=== PATIENT | male | born 1935 | race Caucasian/White ===

== ENCOUNTER 2018-06-29 17:21 | Inpatient (IN) ==
[2018-06-29 19:43] LABS: Basophils % 0.1 % (0.1-2.0); Eosinophils % 0.1 % (0.1-12.0); Hematocrit 30.5 % (42.0-52.0); Hemoglobin 9.9 g/dL (14.1-18.0); Lymphocytes # 0.4 K/mm3 (0.7-4.5); Lymphocytes % 1.9 % (10-50); Mean Corpuscular HGB Conc 32.5 g/dL (31.8-35.4); Mean Corpuscular Hemoglobin 33.3 pg (27.0-31.2); Mean Corpuscular Volume 102.5 fl (80-94); Mean Platelet Volume 8.7 fl (7.4-10.4); Monocytes # 1.2 K/mm3 (0.1-1.0); Neutrophils # 21.3 K/mm3 (1.8-7.8); Neutrophils % 92.9 % (37.0-80.0); Platelet Count 203 K/mm3 (142-424); Red Blood Count 2.97 M/mm3 (4.60-6.20); Red Cell Distribution Width 13.8 % (11.5-17.5); White Blood Count 22.9 K/mm3 (4.8-10.8)
--- NOTE | 2018-06-29 19:54 | Emergency Department Note ---
ED Disposition Clinical Impression: Right lower lobe pneumonia, Fall, Brain atrophy, DJD (degenerative joint disease) of cervical spine, Sinusitis, Hypokalemia Disposition: Still a Patient Condition on Discharge: Fair - Critical Care Critical Care Time: No Attestation: On 06/29/18, the high probability of a clinically significant, sudden or life threatening deterioration of the following system(s) required my full and direct attention, intervention and personal management. The time I documented below is in addition to time spent performing reported procedures but includes the following listed in this critical care notation. Medical Decision Making - Medical Records Medical records reviewed: Yes: I reviewed the patient's medical records. - Efra Inquiry Pt receiving controlled substance: No Efra was queried for this patient: No Vital Signs: 06/29/18 17:21 06/29/18 17:42 06/29/18 18:20 Temperature 98.4 F Temperature Source Temporal Artery Scan Pulse Rate [Right Brachial] 67 69 59 L Respiratory Rate 18 Blood Pressure [Right Arm] 89/53 L 90/51 L 91/51 L Blood Pressure Mean [Right Arm] 65 64 64 Blood Pressure Source [Right Arm] Automatic Cuff Automatic Cuff Automatic Cuff Blood Pressure Position [Right Arm] Supine Sitting Sitting 02 Sat by Pulse Oximetry 95 95 Oxygen Delivery Method Nasal Cannula Oxygen Flow Rate (LPM) 2 06/29/18 18:30 06/29/18 19:00 06/29/18 19:52 Temperature Temperature Source Pulse Rate [Right Brachial] 53 L 56 L 58 L Respiratory Rate Blood Pressure [Right Arm] 101/53 L 98/54 L 105/53 L Blood Pressure Mean [Right Arm] 69 68 70 Blood Pressure Source [Right Arm] Automatic Cuff Automatic Cuff Blood Pressure Position [Right Arm] Sitting Sitting 02 Sat by Pulse Oximetry 97 97 97 Oxygen Delivery Method Oxygen Flow Rate (LPM) - Lab Data Lab Results 06/29/18 18:33: Lactate 1.5 06/29/18 19:30: WBC 22.9 H*, RBC 2.97 L, Hgb 9.9 L, Hct 30.5 L, MCV 102.5 H, MCH 33.3 H, MCHC 32.5, RDW 13.8, Plt Count 203, MPV 8.7, Neut % (Auto) 92.9 H, Lymph % (Auto) 1.9 L, [place] % (Auto) 5.0, Eos % (Auto) 0.1, Baso % (Auto) 0.1, Neut # (Auto) 21.3 H, Lymph # (Auto) 0.4 L, [place] # (Auto) 1.2 H, Eos # (Auto) 0.0, Baso # (Auto) 0.0 06/29/18 19:30: Sodium 140, Potassium 2.9 L*, Chloride 103, Carbon Dioxide 29, Anion Gap 10.9, BUN 27 H, Creatinine 1.53 H, Estimated Creat Clear 43, Estimated GFR 44 L, Est GFR ( Amer) 53 L, Glucose 128 H, Calcium 7.8 L, Total Bilirubin 0.4, AST 37, ALT 28, Alkaline Phosphatase 115, Total Creatine Kinase 700 H*, CK-MB (CK-2) 4.6 H, CK-MB (CK-2) Rel Index 0.7, Troponin I 0.05, Total Protein 7.2, Albumin 2.6 L, Globulin 4.6 H, Albumin/Globulin Ratio 0.6 L Result diagrams: 06/29/18 19:30 06/29/18 19:30 Orders (Tests/Meds): ED MEDICATIONS Discontinued Medications Generic Name Dose Route Start Last Admin Trade Name Freq PRN Reason Stop Dose Admin Sodium Chloride 1,000 mls @ 999 mls/hr 06/29/18 17:45 06/29/18 17:30 Sod Chlor 0.9% 1000ml Bag IV 06/29/18 18:45 999 mls/hr .Q1H1M JODEE Administration Ceftriaxone Sodium 1 gm/ 50 mls @ 100 mls/hr 06/29/18 18:39 06/29/18 19:54 Sodium Chloride IV 06/29/18 19:08 100 mls/hr ONCE ONE Administration Protocol ORDERS Category Date Time Status Complete Blood Count Auto Diff Stat Lab 06/29/18 19:30 Results UDS [Drug Screen,Urine] Routine Lab 06/29/18 Ordered Blood Culture Stat Micro 06/29/18 19:30 Received - Radiology Data #1 Image(s): Chest Preliminary Findings: Abnormal MPRESSION: Probable right perihilar and right lower lobe pneumonia, question minimal left lower lobe pneumonic infiltrate as well MPRESSION: Pelvis and hips negative for acute fracture - CT Data CT Scan: C-Spine Time Received: 20:01 Findings Narrative: MPRESSION: Mild to moderate degenerative disc disease C5-6 and C6-7 and arthritic changes of the lateral axial joint, no acute cervical spine pathology noted. IMPRESSION: Inflammatory changes likely acute and chronic of the maxillary sinuses, no facial bone fracture noted. MPRESSION: Findings of age-appropriate cortical atrophy and chronic ischemic white matter changes, no acute intracranial pathology noted Medical Decision Narrative: The patient received IV fluids with increase of systolic blood pressure to 105/[address] scans were essentially negative except for sinusitis and degenerative joint disease of the cervical spine and unchanged MCA aneurysm. X-ray was surprisingly positive for right lower lobe pneumonia his blood work came back positive for 22K WBC his potassium was 2.9. I informed the patient his caregiver that he will need to be admitted, he refused to be transferred to the [place] and signed a refusal and agreed to be admitted to [facility] on the unassigned service. Fall HPI - General Chief Complaint: Fall Stated Complaint: fall Time Seen by Provider: 06/29/18 18:00 Mode of Arrival: EMS Limitations: No Limitations Description of Symptoms (Recalled from ER Triage Doc. by RN): Pt caregiver states she came home from the store and found pt on the floor, states when she left pt was in his recliner. Pt caregiver states when she found pt on the floor he acted like he had been asleep. Pt is alert, oriented x3, pt is stuttering when he talks, caregiver states speech is not normal for pt, caregiver states the last time pt fell his speech was the same. - History of Present Illness HPI Narrative: I read the above triage and agree with it. The patient is 82 years old white male who ambulates independently at his house with a caregiver. As above she went to the store came back found on the floor with facial rash and chest rash. He denies neck pain mid back pain or lower back pain. Denies having chest pain or abdominal pain. MD complaint: fall Onset (ago): minute(s) (30 minutes prior to arrival.) Fall from: wheelchair Fall witnessed: no Place fall occurred: home Loss of consciousness: unsure Prolonged down time: unclear Location of injury: face, chest - Related Data Home Medications Medication Instructions Recorded Confirmed Aspirin [Aspir 81] 81 mg PO DAILY 04/08/18 06/29/18 Atenolol [Atenolol 25mg Tab] 25 mg PO DAILY 04/08/18 06/29/18 Baclofen 5 mg PO DAILY 04/08/18 06/29/18 Ergocalciferol (Vitamin D2) 400 unit PO DAILY 04/08/18 06/29/18 [Vitamin D] Multivitamin [Multi-Day Vitamins] 1 each PO DAILY 04/08/18 06/29/18 Doxepin HCl [Sinequan 10mg capsule] 10 mg PO BID 06/29/18 06/29/18 hydroCHLOROthiazide [HCTZ 25mg 25 mg PO DAILY 06/29/18 06/29/18 tab] Allergies Allergy/AdvReac Type Severity Reaction Status Date / Time tuberculin,PPD,multi-puncture Allergy Mild Verified 06/29/18 17:31 [TUBERCULIN,PPD,MULTI-PUNCTURE] [facility] History I have reviewed the patient's past medical history: Yes Medical History: Denies:: Diabetes Mellitus Type 1, Diabetes Mellitus Type 2 Laterality Cases: Bilateral: Other - Social History Smoking Status: Current every day smoker Tobacco Type: cigarettes Alcohol Intake: never - Psychiatric History Expresses thoughts of harming self/others: None Suicide Plan Description: No Plan ROS Obtained: Yes All systems reviewed & no additional complaints Physical Exam - General General appearance: alert, in no apparent distress - Head Head exam: normocephalic, normal inspection, other (Left facial and nose carpet rash. ) - Eye Eye exam: Present: normal appearance, PERRL, EOMI - ENT ENT exam: Present: normal exam, normal oropharynx, mucous membranes moist, TM's normal bilaterally, normal external ear exam - Neck Neck exam: Present: normal inspection, full ROM, trachea midline. Absent: meningismus, lymphadenopathy - Chest Chest inspection: Present: normal inspection, symmetric chest wall rise, rash, other (Carpet rash on the right side of the chest. ). Absent: tenderness - Respiratory Respiratory exam: Present: normal lung sounds bilaterally. Absent: respiratory distress, wheezes, stridor - Cardiovascular Cardiovascular exam: Present: regular rate, normal rhythm, normal heart sounds. Absent: JVD - Abdominal Exam Abdominal exam: Present: soft, normal bowel sounds. Absent: distention, tenderness, guarding, rebound, rigidity - Extremities Exam Extremities exam: Present: normal inspection, full ROM, normal capillary refill. Absent: tenderness, pedal edema, joint swelling, calf tenderness - Back Exam Back exam: Present: normal inspection. Absent: tenderness, CVA tenderness (R), CVA tenderness (L), paraspinal tenderness, vertebral tenderness - Neurological Exam Neurological exam: Present: alert, oriented X3, CN II-XII intact, motor sensory deficit, reflexes normal - Psychiatric Psychiatric exam: Present: normal affect, normal mood - Skin Skin exam: Present: warm, dry, intact, normal color - Lymphatic Lymphatic Findings: no adenopathy
[2018-06-29 20:08] LABS: Albumin Level 2.6 gm/dL (3.4-5.0); Albumin/Globulin Ratio 0.6 (1.1-1.8); Anion Gap 10.9 mEq/L (5-15); Bilirubin,Total 0.4 mg/dL (0.2-1.0); Calcium 7.8 mg/dL (8.5-10.1); Globulin 4.6 gm/dl (1.3-3.2); Total Protein,Serum 7.2 gm/dL (6.4-8.2)
[2018-06-29 20:12] LABS: Potassium 2.9 mmoL/L (3.5-5.1)
[2018-06-29 20:40] LABS: Lymphocytes % 3 % (10-50); Macrocytosis 2+; Monocytes % 3 % (2-9); Neutrophils % 78 % (42-76); Rouleaux 2+; Total Cells Counted 100
[2018-06-30 06:06] LABS: Basophils % 0.2 % (0.1-2.0); Eosinophils % 0.2 % (0.1-12.0); Hematocrit 29.4 % (42.0-52.0); Hemoglobin 9.3 g/dL (14.1-18.0); Lymphocytes # 1.3 K/mm3 (0.7-4.5); Lymphocytes % 9.9 % (10-50); Mean Corpuscular HGB Conc 31.8 g/dL (31.8-35.4); Mean Corpuscular Hemoglobin 32.6 pg (27.0-31.2); Mean Corpuscular Volume 102.6 fl (80-94); Mean Platelet Volume 8.1 fl (7.4-10.4); Monocytes # 0.8 K/mm3 (0.1-1.0); Monocytes % 6.2 % (1.7-9.3); Neutrophils # 11.2 K/mm3 (1.8-7.8); Neutrophils % 83.6 % (37.0-80.0); Platelet Count 191 K/mm3 (142-424); Red Blood Count 2.86 M/mm3 (4.60-6.20); Red Cell Distribution Width 13.8 % (11.5-17.5); White Blood Count 13.4 K/mm3 (4.8-10.8)
--- NOTE | 2018-06-30 07:28 | Pharmacy Consult Notes ---
[facility] Pharmacy VTE Monitoring - Patient Demographics Admission date: 06/29/18 Report Date: 06/30/18 Time: 07:28 Allergies/Adverse Reactions: Patient Allergies tuberculin,PPD,multi-puncture [TUBERCULIN,PPD,MULTI-PUNCTURE] Allergy (Mild, Verified 06/29/18 17:31) Height: 1.83 m Weight: 81.76 kg Patient Problems: Current Active Problems Hypokalemia (Acute) Right lower lobe pneumonia (Acute) Fall (Acute) Brain atrophy (Acute) DJD (degenerative joint disease) of cervical spine (Acute) Sinusitis (Acute) - VTE Risk Labs: VTE Related Lab Results Hgb 9.3 g/dL (14.1-18.0) L 06/30/18 05:34 Hct 29.4 % (42.0-52.0) L 06/30/18 05:34 Plt Count 191 K/mm3 (142-424) 06/30/18 05:34 BUN 28 mg/dL (7-18) H 06/30/18 05:34 Creatinine 1.41 mg/dL (0.70-1.30) H 06/30/18 05:34 Estimated Creat Clear 47 mL/min (50-200) 06/30/18 05:34 Was VTE Risk Assessment Performed: Yes VTE Risk Level: Moderate Risk - Prophylaxis VTE Prophylaxis Ordered?: Yes Types of VTE Prophylaxis: TEDS Knee High Location of Applied Device: Bilateral Lower Extremeties - VTE Diagnosis Confirmed Treatment or plan recommended: Continue Current Treatment
--- NOTE | 2018-06-30 08:49 | History & Physical Report ---
*Admission Date: 06/29/18 *Chief complaint: Fall; cough *History of present illness: Patient is an 82-year-old male who receives the majority of his care at [facility] and is also followed by Dr. Easley who was admitted through emergency room due to a fall and persistent cough. He does have a history of hypertension, chronic back pain, tobacco addiction, peptic ulcer disease, Parkinson's disease, cerebral aneurysm, and frequent falls. Patient describes a cough for the past 3-4 days associated with a fever and some shortness of breath. He states that he got up from his chair yesterday p.m., lost his balance and fell to the floor. He states this happens frequently. He denies any injuries from the fall. He does deny chest pain as well and feels that he has been eating as usual. With evaluation in the emergency room he was found to have a pneumonia. He was given an IV fluid bolus, started on Rocephin, and then admitted for further evaluation and treatment. This a.m. patient does not feel any better. He continues to cough. [facility] History Medical History: Reports:: Heart Murmur, Hyperlipidemia, Hypertension, Renal Insufficiency Denies:: Cancer, Diabetes Mellitus Type 1, Diabetes Mellitus Type 2, Internal Pacemaker, MRSA Comment: Parkinson's disease Laterality Cases: Bilateral: Other (Lumbar disc surgery; removal of cyst from scrotum) Other Surgeries: No: Pacemaker Amputation: No - *Social History Educational Level: Attended High School Smoking Status: Current every day smoker Tobacco Type: cigarettes # Packs/Day (cigarettes): 1 Alcohol Intake: current Alcohol Intake Frequency:: holidays/special occasions only Occupational Status: retired Housing: house Household Members: friend(s) - Psychiatric History Expresses thoughts of harming self/others: None Suicide Plan Description: No Plan Comment: Mother with cancer; siblings had leukemia Review of Systems - Constitutional Reports chills, Reports fever(s), Reports headache(s) - ENT Reports dizziness, Denies ear pain, Denies sore throat - *Cardiovascular Reports shortness of breath, Denies chest pain - *Respiratory Reports chest congestion, Reports cough, Reports shortness of breath - *Gastrointestinal Reports constipation (Sometimes), Denies change in bowel habits, Denies difficulty swallowing, Denies black, tarry stools, Denies nausea, Denies vomiting - *Genitourinary Denies difficulty urinating - *Musculoskeletal Reports back pain, Reports muscle weakness - *Neurologic Reports unsteadiness, Reports dizziness, Reports frequent falls, Reports headache(s), Reports weakness, Denies seizure-like activity, Denies fainting Meds Home Medications Medication Instructions Recorded Confirmed Type Aspirin [Aspir 81] 81 mg PO DAILY 04/08/18 06/29/18 History Atenolol [Atenolol 25mg Tab] 25 mg PO DAILY 04/08/18 06/29/18 History Baclofen 5 mg PO DAILY 04/08/18 06/29/18 History Multivitamin [Multi-Day Vitamins] 1 each PO DAILY 04/08/18 06/29/18 History Doxepin HCl [Sinequan 10mg capsule] 10 mg PO BID 06/29/18 06/29/18 History hydroCHLOROthiazide [HCTZ 25mg 25 mg PO DAILY 06/29/18 06/29/18 History tab] Albuterol Sulfate [Albuterol HFA 1 - 2 puffs IH Q4-6H PRN 06/30/18 06/30/18 History Inhaler] Cholecalciferol (Vitamin D3) 400 unit PO DAILY 06/30/18 06/30/18 History [Vitamin D3] Sennosides/Docusate Sodium [Stool 1 each PO DAILYP PRN 06/30/18 06/30/18 History Softener-Laxative Tablet] Allergies Allergy/AdvReac Type Severity Reaction Status Date / Time tuberculin,PPD,multi-puncture Allergy Mild Verified 06/29/18 17:31 [TUBERCULIN,PPD,MULTI-PUNCTURE] Exam Vital signs and Labs for Last 24 Hours: Temp Pulse Resp BP Pulse Ox 98.5 F 59 L 18 126/58 L 94 L 06/30/18 07:50 06/30/18 07:50 06/30/18 07:50 06/30/18 07:50 06/30/18 07:50 Laboratory Results - last 24 hr 06/29/18 18:33: Lactate 1.5 06/29/18 19:30: WBC 22.9 H*, RBC 2.97 L, Hgb 9.9 L, Hct 30.5 L, MCV 102.5 H, MCH 33.3 H, MCHC 32.5, RDW 13.8, Plt Count 203, MPV 8.7, Neut % (Auto) 92.9 H, Lymph % (Auto) 1.9 L, [place] % (Auto) 5.0, Eos % (Auto) 0.1, Baso % (Auto) 0.1, Neut # (Auto) 21.3 H, Lymph # (Auto) 0.4 L, [place] # (Auto) 1.2 H, Eos # (Auto) 0.0, Baso # (Auto) 0.0, Total Counted 100, Neutrophils % (Manual) 78 H, Band Neutrophils % 16.0 H, Lymphocytes % (Manual) 3 L, Monocytes % (Manual) 3, Platelet Estimate Normal, RBC Morphology Not Reportable, Macrocytosis 2+, Rouleaux 2+ 06/29/18 19:30: Sodium 140, Potassium 2.9 L*, Chloride 103, Carbon Dioxide 29, Anion Gap 10.9, BUN 27 H, Creatinine 1.53 H, Estimated Creat Clear 43, Estimated GFR 44 L, Est GFR ( Amer) 53 L, Glucose 128 H, Calcium 7.8 L, Total Bilirubin 0.4, AST 37, ALT 28, Alkaline Phosphatase 115, Total Creatine Kinase 700 H*, CK-MB (CK-2) 4.6 H, CK-MB (CK-2) Rel Index 0.7, Troponin I 0.05, Total Protein 7.2, Albumin 2.6 L, Globulin 4.6 H, Albumin/Globulin Ratio 0.6 L 06/30/18 05:34: WBC 13.4 H D, RBC 2.86 L, Hgb 9.3 L, Hct 29.4 L, MCV 102.6 H, MCH 32.6 H, MCHC 31.8, RDW 13.8, Plt Count 191, MPV 8.1, Neut % (Auto) 83.6 H, Lymph % (Auto) 9.9 L, [place] % (Auto) 6.2, Eos % (Auto) 0.2, Baso % (Auto) 0.2, Neut # (Auto) 11.2 H, Lymph # (Auto) 1.3, [place] # (Auto) 0.8, Eos # (Auto) 0.0, Baso # (Auto) 0.0 06/30/18 05:34: Sodium 140, Potassium 3.0 L, Chloride 105, Carbon Dioxide 28, Anion Gap 10.0, BUN 28 H, Creatinine 1.41 H, Estimated Creat Clear 47, Estimated GFR 48 L, Est GFR ( Amer) 58 L, Glucose 107 H, Calcium 8.0 L I & O for Last 24 hours: Intake & Output 06/27/18 06/28/18 06/29/18 06/30/18 11:59 11:59 11:59 11:59 Intake Total 1998 Output Total 550 / 550 Balance 1449 / 1449 Weight 180 lb 4 oz Radiology Reports for the Last 24 Hours: 06/29/2018 chest x-ray IMPRESSION: Probable right perihilar and right lower lobe pneumonia, question minimal left lower lobe pneumonic infiltrate as well 06/29/2018 x-ray of pelvis IMPRESSION: Pelvis and hips negative for acute fracture 06/29/2018 CT of the head IMPRESSION: Findings of age-appropriate cortical atrophy and chronic ischemic white matter changes, no acute intracranial pathology noted 06/29/2018 CT of the face IMPRESSION: Inflammatory changes likely acute and chronic of the maxillary sinuses, no facial bone fracture noted. 06/29/2018 CT of the cervical spine IMPRESSION: Mild to moderate degenerative disc disease C5-6 and C6-7 and arthritic changes of the lateral axial joint, no acute cervical spine pathology noted. - Constitutional no acute distress Comments: Conversant - *Routine HEENT Exam Head: Present: normocephalic, atraumatic Eye: Present: PERRL ENT: Present: mucous membranes dry, oropharynx clear, nares patent - *Routine Neck Exam Present: supple, full ROM. Absent: carotid bruit, lymphadenopathy, thyromegaly - *Routine Respiratory Exam Comments: Bilateral rhonchi and wheezing throughout - *Routine Cardiovascular Exam Present: RRR - *Routine Abdominal Exam Present: soft, normoactive bowel sounds. Absent: tenderness, distended - *Routine Extremities Exam Present: full ROM. Absent: edema, calf tenderness - *Routine Neurological Exam Present: alert, oriented X3 Cogwheeling noted; mask face Assessment and Plan (1) Hypokalemia Current visit: Yes Status: Acute Category: Medical Code(s): E87.6 - Hypokalemia (2) Right lower lobe pneumonia Current visit: Yes Status: Acute Category: Medical Code(s): J18.1 - Lobar pneumonia, unspecified organism (3) Parkinsons disease Current visit: Yes Status: Chronic Category: Medical Code(s): G20 - Parkinson's disease (4) Hypertension Current visit: Yes Status: Chronic Category: Medical Code(s): I10 - Essential (primary) hypertension (5) Tobacco use disorder Current visit: Yes Status: Chronic Category: Medical Code(s): F17.200 - Nicotine dependence, unspecified, uncomplicated (6) Fall Current visit: Yes Status: Chronic Category: Medical Code(s): W19.XXXA - Unspecified fall, initial encounter (7) Sinusitis Current visit: Yes Status: Acute Category: Medical Code(s): J32.9 - Chronic sinusitis, unspecified (8) Renal insufficiency Current visit: Yes Status: Acute Category: Medical Code(s): N28.9 - Disorder of kidney and ureter, unspecified - Assessment and plan all Dx Assessment and Plan for all problems:: Patient has been started on IV Rocephin and Zithromax. Continues with IV fluids with 40 mEq of potassium at 75 an hour. He is also been started on p.o. potassium. He will have swallowing studies this a.m. He has also been started on DuoNeb treatments. CBC and BMP ordered for in the a.m.
[2018-07-01 06:09] LABS: Anion Gap 13.7 mEq/L (5-15); Calcium 8.3 mg/dL (8.5-10.1); Potassium 3.7 mmoL/L (3.5-5.1)
[2018-07-01 06:14] LABS: Basophils % 0.3 % (0.1-2.0); Eosinophils % 0.3 % (0.1-12.0); Hematocrit 30.5 % (42.0-52.0); Hemoglobin 9.6 g/dL (14.1-18.0); Lymphocytes # 0.7 K/mm3 (0.7-4.5); Lymphocytes % 8.7 % (10-50); Mean Corpuscular HGB Conc 31.4 g/dL (31.8-35.4); Mean Corpuscular Hemoglobin 32.2 pg (27.0-31.2); Mean Corpuscular Volume 102.4 fl (80-94); Mean Platelet Volume 7.9 fl (7.4-10.4); Monocytes # 0.6 K/mm3 (0.1-1.0); Monocytes % 7.7 % (1.7-9.3); Neutrophils # 6.9 K/mm3 (1.8-7.8); Platelet Count 186 K/mm3 (142-424); Red Blood Count 2.98 M/mm3 (4.60-6.20); Red Cell Distribution Width 13.9 % (11.5-17.5); White Blood Count 8.3 K/mm3 (4.8-10.8)
--- NOTE | 2018-07-01 08:53 | Progress Note ---
Internal Medicine - PN: Subj *Date: 07/01/18 *Time: 08:50 Interval history: Mr. Matthews seems confused and disoriented this morning. He is trying to get out of bed. His numbers look better. His white count is normal. He has however been running a fever. He has lots of rales and rhonchi on the right side. Exam Vital signs and Labs for Last 24 Hours: Temp Pulse Resp BP Pulse Ox 100.6 F H 78 22 130/73 95 07/01/18 04:00 07/01/18 06:20 07/01/18 04:00 07/01/18 04:00 07/01/18 06:20 Laboratory Results - last 24 hr 07/01/18 05:40: WBC 8.3 D, RBC 2.98 L, Hgb 9.6 L, Hct 30.5 L, MCV 102.4 H, MCH 32.2 H, MCHC 31.4 L, RDW 13.9, Plt Count 186, MPV 7.9, Neut % (Auto) 83.0 H, Lymph % (Auto) 8.7 L, [place] % (Auto) 7.7, Eos % (Auto) 0.3, Baso % (Auto) 0.3, Neut # (Auto) 6.9, Lymph # (Auto) 0.7, [place] # (Auto) 0.6, Eos # (Auto) 0.0, Baso # (Auto) 0.0 07/01/18 05:40: Sodium 143, Potassium 3.7 D, Chloride 107, Carbon Dioxide 26, Anion Gap 13.7, BUN 26 H, Creatinine 1.56 H, Estimated Creat Clear 42, Estimated GFR 43 L, Est GFR ( Amer) 52 L, Glucose 87, Calcium 8.3 L Laboratory Tests 07/01/18 07/01/18 05:40 05:40 WBC 8.3 D Hgb 9.6 L Sodium 143 Potassium 3.7 D Chloride 107 BUN 26 H Creatinine 1.56 H I & O for Last 24 hours: Intake & Output 06/28/18 06/29/18 06/30/18 07/01/18 11:59 11:59 11:59 11:59 Intake Total 1998 1217 / 1217 Output Total 550 / 550 900 / 900 Balance 1449 / 1449 317 / 317 Weight 180 lb 4 oz 177 lb 4 oz - Constitutional no acute distress, agitated - *Routine HEENT Exam Eye: Present: PERRL ENT: Present: mucous membranes moist - *Routine Respiratory Exam Comments: Right-sided rales and rhonchi. Seems worse than yesterday. - *Routine Abdominal Exam Present: soft. Absent: tenderness - *Routine Extremities Exam Absent: edema Assessment and Plan (1) Hypokalemia Current visit: Yes Status: Acute Category: Medical Code(s): E87.6 - Hypokalemia (2) Right lower lobe pneumonia Current visit: Yes Status: Acute Category: Medical Code(s): J18.1 - Lobar pneumonia, unspecified organism (3) Parkinsons disease Current visit: Yes Status: Chronic Category: Medical Code(s): G20 - Parkinson's disease (4) Hypertension Current visit: Yes Status: Chronic Category: Medical Code(s): I10 - Essential (primary) hypertension (5) Tobacco use disorder Current visit: Yes Status: Chronic Category: Medical Code(s): F17.200 - Nicotine dependence, unspecified, uncomplicated (6) Fall Current visit: Yes Status: Chronic Category: Medical Code(s): W19.XXXA - Unspecified fall, initial encounter (7) Sinusitis Current visit: Yes Status: Acute Category: Medical Code(s): J32.9 - Chronic sinusitis, unspecified (8) Renal insufficiency Current visit: Yes Status: Acute Category: Medical Code(s): N28.9 - Disorder of kidney and ureter, unspecified - Assessment and plan all Dx Assessment and Plan for all problems:: Repeat chest x-ray. Chest physiotherapy. He refused Sinemet yesterday. I am going to try Mirapex today.
--- NOTE | 2018-07-02 08:17 | Progress Note ---
Internal Medicine - PN: Subj *Date: 07/02/18 *Time: 08:14 Interval history: Patient is awake this morning but very difficult to understand. He does state that he hurts in his back and he needs to urinate. He denies any other pain. He states he slept off and on last night. Exam Vital signs and Labs for Last 24 Hours: Temp Pulse Resp BP Pulse Ox 98.3 F 66 20 159/88 H 98 07/02/18 07:24 07/02/18 07:24 07/02/18 07:24 07/02/18 07:24 07/02/18 07:24 I & O for Last 24 hours: Intake & Output 06/29/18 06/30/18 07/01/18 07/02/18 11:59 11:59 11:59 11:59 Intake Total 1998 / 1998 1457 / 1457 360 / 360 Output Total 550 / 550 900 / 900 250 / 250 Balance 1449 / 1449 557 / 557 110 / 110 Weight 180 lb 4 oz 177 lb 4 oz 177 lb 3.991 oz Microbiology Reports for the Last 24 Hours: Microbiology 06/29/18 19:30 Blood Blood Culture - Preliminary NO GROWTH AFTER 48 HOURS 06/29/18 18:33 Blood Blood Culture - Preliminary NO GROWTH AFTER 48 HOURS Radiology Reports for the Last 24 Hours: CXR - No change right lower lobe pneumonia with small effusion. Head CT - 1. No acute intracranial findings. 2. Atrophy with chronic ischemic change. 3. Sinusitis - Constitutional no acute distress - *Routine Respiratory Exam Present: rhonchi, wheezes (bilaterally). Absent: rales - *Routine Cardiovascular Exam Present: RRR - *Routine Abdominal Exam Present: soft, normoactive bowel sounds. Absent: tenderness - *Routine Extremities Exam Absent: cyanosis, clubbing, edema Assessment and Plan (1) Right lower lobe pneumonia Current visit: Yes Status: Acute Category: Medical Code(s): J18.1 - Lobar pneumonia, unspecified organism (2) Hypokalemia Current visit: Yes Status: Acute Category: Medical Code(s): E87.6 - Hypokalemia (3) Parkinsons disease Current visit: Yes Status: Chronic Category: Medical Code(s): G20 - Parkinson's disease (4) Hypertension Current visit: Yes Status: Chronic Category: Medical Code(s): I10 - Essential (primary) hypertension (5) Tobacco use disorder Current visit: Yes Status: Chronic Category: Medical Code(s): F17.200 - Nicotine dependence, unspecified, uncomplicated (6) Fall Current visit: Yes Status: Chronic Category: Medical Code(s): W19.XXXA - Unspecified fall, initial encounter (7) Sinusitis Current visit: Yes Status: Acute Category: Medical Code(s): J32.9 - Chronic sinusitis, unspecified (8) Renal insufficiency Current visit: Yes Status: Acute Category: Medical Code(s): N28.9 - Disorder of kidney and ureter, unspecified - Assessment and plan all Dx Assessment and Plan for all problems:: Will discuss further care with Dr. Easley.
--- NOTE | 2018-07-03 08:54 | Progress Note ---
Internal Medicine - PN: Subj *Date: 07/03/18 *Time: 08:51 Interval history: He looks significantly improved today. He is sitting up in the chair and he is conversant and more intelligible in his speech. He fed himself breakfast. Exam Vital signs and Labs for Last 24 Hours: Temp Pulse Resp BP Pulse Ox 97.8 F 66 20 150/89 H 94 L 07/03/18 07:56 07/03/18 07:56 07/03/18 07:56 07/03/18 07:56 07/03/18 07:56 I & O for Last 24 hours: Intake & Output 06/30/18 07/01/18 07/02/18 07/03/18 11:59 11:59 11:59 11:59 Intake Total 1998 / 1998 1457 / 1457 360 / 360 2307 / 2307 Output Total 550 / 550 900 / 900 450 / 450 200 / 200 Balance 1449 / 1449 557 / 557 -90 / -90 2107 / 2107 Weight 180 lb 4 oz 177 lb 4 oz 177 lb 3.991 oz 176 lb 10.961 oz - Constitutional no acute distress - *Routine HEENT Exam Head: Present: normocephalic Eye: Present: EOMI, PERRL ENT: Present: mucous membranes moist - *Routine Neck Exam Present: supple. Absent: lymphadenopathy - *Routine Respiratory Exam Comments: He is moving air better bilaterally and his rales and rhonchi have decreased bilaterally. - *Routine Abdominal Exam Present: soft, normoactive bowel sounds. Absent: tenderness - *Routine Extremities Exam Absent: cyanosis, clubbing, edema Assessment and Plan (1) Right lower lobe pneumonia Current visit: Yes Status: Acute Category: Medical Code(s): J18.1 - Lobar pneumonia, unspecified organism (2) Hypokalemia Current visit: Yes Status: Acute Category: Medical Code(s): E87.6 - Hy pokalemia (3) Parkinsons disease Current visit: Yes Status: Chronic Category: Medical Code(s): G20 - Parkinson's disease (4) Hypertension Current visit: Yes Status: Chronic Category: Medical Code(s): I10 - Essential (primary) hypertension (5) Tobacco use disorder Current visit: Yes Status: Chronic Category: Medical Code(s): F17.200 - Nicotine dependence, unspecified, uncomplicated (6) Fall Current visit: Yes Status: Chronic Category: Medical Code(s): W19.XXXA - Unspecified fall, initial encounter (7) Sinusitis Current visit: Yes Status: Acute Category: Medical Code(s): J32.9 - C hronic sinusitis, unspecified (8) Renal insufficiency Current visit: Yes Status: Acute Category: Medical Code(s): N28.9 - Disorder of kidney and ureter, unspecified - Assessment and plan all Dx Assessment and Plan for all problems:: He is much improved. Continue present regimen.
[2018-07-03 10:31] LABS: Basophils % 0.4 % (0.1-2.0); Eosinophils # 0.1 K/mm3 (0.0-0.4); Eosinophils % 2.2 % (0.1-12.0); Hematocrit 31.6 % (42.0-52.0); Hemoglobin 9.8 g/dL (14.1-18.0); Lymphocytes # 0.8 K/mm3 (0.7-4.5); Lymphocytes % 14.2 % (10-50); Mean Corpuscular Hemoglobin 32.6 pg (27.0-31.2); Mean Corpuscular Volume 105.1 fl (80-94); Mean Platelet Volume 9.3 fl (7.4-10.4); Monocytes # 0.6 K/mm3 (0.1-1.0); Monocytes % 9.6 % (1.7-9.3); Neutrophils # 4.3 K/mm3 (1.8-7.8); Neutrophils % 73.6 % (37.0-80.0); Platelet Count 186 K/mm3 (142-424); Red Cell Distribution Width 13.9 % (11.5-17.5); White Blood Count 5.9 K/mm3 (4.8-10.8)
[2018-07-03 10:38] LABS: Anion Gap 10.5 mEq/L (5-15); Calcium 8.2 mg/dL (8.5-10.1); Potassium 4.5 mmoL/L (3.5-5.1)
--- NOTE | 2018-07-04 09:19 | Progress Note ---
Internal Medicine - PN: Subj *Date: 07/04/18 *Time: 08:40 Interval history: Pt is resting quietly in bed. He is answering questions and following commands appropriately. He reports "hurting all over" and decreased appetite this morning. Exam Vital signs and Labs for Last 24 Hours: Temp Pulse Resp BP Pulse Ox 97.6 F 58 L 18 152/80 H 94 L 07/04/18 04:00 07/04/18 05:42 07/04/18 04:00 07/04/18 04:00 07/04/18 05:42 Laboratory Results - last 24 hr 07/03/18 10:15: WBC 5.9 D, RBC 3.00 L, Hgb 9.8 L, Hct 31.6 L, MCV 105.1 H, MCH 32.6 H, MCHC 31.0 L, RDW 13.9, Plt Count 186, MPV 9.3, Neut % (Auto) 73.6, Lymph % (Auto) 14.2, [place] % (Auto) 9.6 H, Eos % (Auto) 2.2, Baso % (Auto) 0.4, Neut # (Auto) 4.3, Lymph # (Auto) 0.8, [place] # (Auto) 0.6, Eos # (Auto) 0.1, Baso # (Auto) 0.0 07/03/18 10:15: Sodium 141, Potassium 4.5 D, Chloride 107, Carbon Dioxide 28, Anion Gap 10.5, BUN 19 H D, Creatinine 1.22 D, Estimated Creat Clear 53, Estimated GFR 57 L, Est GFR ( Amer) 69 D, Glucose 113 H, Calcium 8.2 L I & O for Last 24 hours: Intake & Output 07/01/18 07/02/18 07/03/18 07/04/18 11:59 11:59 11:59 11:59 Intake Total 1457 / 1457 360 / 360 2547 / 2547 1937 / 1937 Output Total 900 / 900 450 / 450 200 / 200 200 / 200 Balance 557 / 557 -90 / -90 2347 / 2347 1737 / 1737 Weight 177 lb 4 oz 177 lb 3.991 oz 176 lb 10.961 oz 186 lb - Constitutional no acute distress - *Routine HEENT Exam Head: Present: normocephalic, atraumatic ENT: Present: mucous membranes dry - *Routine Respiratory Exam Comments: rhonchi and wheezes throughout with bibasilar rales - *Routine Cardiovascular Exam Present: RRR - *Routine Abdominal Exam Present: soft, normoactive bowel sounds. Absent: tenderness, distended, rebound, guarding, rigid - *Routine Extremities Exam Present: pulses intact. Absent: edema, calf tenderness - *Routine Neurological Exam Present: alert, oriented X3, moving all extremities speech slurred Assessment and Plan (1) Right lower lobe pneumonia Current visit: Yes Status: Acute Category: Medical Code(s): J18.1 - Lobar pneumonia, unspecified organism (2) Hypokalemia Current visit: Yes Status: Acute Category: Medical Code(s): E87.6 - Hypokalemia (3) Parkinsons disease Current visit: Yes Status: Chronic Category: Medical Code(s): G20 - Parkinson's disease (4) Hypertension Current visit: Yes Status: Chronic Category: Medical Code(s): I10 - Essential (primary) hypertension (5) Tobacco use disorder Current visit: Yes Status: Chronic Category: Medical Code(s): F17.200 - Nicotine dependence, unspecified, uncomplicated (6) Fall Current visit: Yes Status: Chronic Category: Medical Code(s): W19.XXXA - Unspecified fall, initial encounter (7) Sinusitis Current visit: Yes Status: Acute Category: Medical Code(s): J32.9 - Chronic sinusitis, unspecified (8) Renal insufficiency Current visit: Yes Status: Acute Category: Medical Code(s): N28.9 - Disorder of kidney and ureter, unspecified - Assessment and plan all Dx Assessment and Plan for all problems:: per Dr. Easley
--- NOTE | 2018-07-05 10:45 | Progress Note ---
Internal Medicine - PN: Subj *Date: 07/05/18 *Time: 10:42 Interval history: He is doing well clinically. At the current time he is resting comfortably. I have made some adjustments in his medications. Azithromycin is discontinued at this point. He had doxepin 10 mg p.o. twice daily ordered. I think he was actually taking 2 at bedtime as an outpatient. For the time being I have discontinued those. His blood pressure has been elevated, therefore I have discontinued his hydrochlorothiazide and replaced it with Maxide 25. Exam Vital signs and Labs for Last 24 Hours: Temp Pulse Resp BP Pulse Ox 97.8 F 59 L 18 140/102 H 94 L 07/05/18 08:00 07/05/18 09:38 07/05/18 08:00 07/05/18 08:00 07/05/18 08:00 I & O for Last 24 hours: Intake & Output 07/02/18 07/03/18 07/04/18 07/05/18 11:59 11:59 11:59 11:59 Intake Total 360 / 360 2547 / 2547 1937 / 1937 2497 / 2497 Output Total 450 / 450 200 / 200 200 / 200 450 / 450 Balance -90 / -90 2347 / 2347 1737 / 1737 2047 / 2047 Weight 177 lb 3.991 oz 176 lb 10.961 oz 186 lb 183 lb 5 oz Microbiology Reports for the Last 24 Hours: Microbiology 06/29/18 19:30 Blood Blood Culture - Final NO GROWTH AFTER 5 DAYS 06/29/18 18:33 Blood Blood Culture - Final NO GROWTH AFTER 5 DAYS - Constitutional no acute distress - *Routine HEENT Exam Eye: Present: EOMI, PERRL ENT: Present: mucous membranes moist - *Routine Respiratory Exam Present: CTA bilaterally - *Routine Cardiovascular Exam Present: RRR, irregular rhythm - *Routine Abdominal Exam Present: normoactive bowel sounds. Absent: tenderness - *Routine Neurological Exam Has gradually become more oriented. Assessment and Plan (1) Right lower lobe pneumonia Current visit: Yes Status: Acute Category: Medical Code(s): J18.1 - Lobar pneumonia, unspecified organism (2) Hypokalemia Current visit: Yes Status: Acute Category: Medical Code(s): E87.6 - Hypokalemia (3) Parkinsons disease Current visit: Yes Status: Chronic Category: Medical Code(s): G20 - Parkinson's disease (4) Hypertension Current visit: Yes Status: Chronic Category: Medical Code(s): I10 - Essential (primary) hypertension (5) Tobacco use disorder Current visit: Yes Status: Chronic Category: Medical Code(s): F17.200 - Nicotine dependence, unspecified, uncomplicated (6) Fall Current visit: Yes Status: Chronic Category: Medical Code(s): W19.XXXA - Unspecified fall, initial encounter (7) Sinusitis Current visit: Yes Status: Acute Category: Medical Code(s): J32.9 - Chronic sinusitis, unspecified (8) Renal insufficiency Current visit: Yes Status: Acute Category: Medical Code(s): N28.9 - Disorder of kidney and ureter, unspecified - Assessment and plan all Dx Assessment and Plan for all problems:: Medication changes as mentioned above. Home soon.
[2018-07-05 11:45] LABS: Basophils % 0.3 % (0.1-2.0); Eosinophils # 0.3 K/mm3 (0.0-0.4); Eosinophils % 4.4 % (0.1-12.0); Hemoglobin 9.6 g/dL (14.1-18.0); Lymphocytes % 14.8 % (10-50); Mean Corpuscular HGB Conc 31.9 g/dL (31.8-35.4); Mean Corpuscular Hemoglobin 32.4 pg (27.0-31.2); Mean Corpuscular Volume 101.7 fl (80-94); Mean Platelet Volume 8.2 fl (7.4-10.4); Monocytes # 0.5 K/mm3 (0.1-1.0); Monocytes % 7.8 % (1.7-9.3); Neutrophils # 4.7 K/mm3 (1.8-7.8); Neutrophils % 72.7 % (37.0-80.0); Platelet Count 198 K/mm3 (142-424); Red Blood Count 2.95 M/mm3 (4.60-6.20); Red Cell Distribution Width 13.7 % (11.5-17.5); White Blood Count 6.5 K/mm3 (4.8-10.8)
[2018-07-05 11:57] LABS: Anion Gap 12.7 mEq/L (5-15); Calcium 8.4 mg/dL (8.5-10.1); Potassium 4.7 mmoL/L (3.5-5.1)
--- NOTE | 2018-07-06 12:36 | Progress Note ---
Internal Medicine - PN: Subj *Date: 07/06/18 *Time: 12:33 Interval history: With Ativan treatment the night before last he was sedated for most of yesterday. I have discontinued the Ativan. He seemed to be doing better on the diazepam. I will not reorder that at this time however. I honestly think that he would do better at home at this point. Management at home would be an issue. He will certainly require home health assistance at a minimum. Placement is also consideration. We will recheck with care management in the morning. Exam Vital signs and Labs for Last 24 Hours: Temp Pulse Resp BP Pulse Ox 97.9 F 75 18 161/99 H 96 07/06/18 11:32 07/06/18 12:09 07/06/18 11:32 07/06/18 11:32 07/06/18 11:32 I & O for Last 24 hours: Intake & Output 07/04/18 07/05/18 07/06/18 07/07/18 11:59 11:59 11:59 11:59 Intake Total 1937 / 1937 2497 / 2497 50 / 50 Output Total 200 / 200 450 / 450 3 / 3 Balance 1737 / 1737 2047 / 204 47 / 47 Weight 186 lb 183 lb 5 oz 178 lb 5 oz - Constitutional no acute distress Comments: Not oriented. Sometimes agitated. - *Routine Respiratory Exam Comments: Good air movement bilaterally. Some rales and rhonchi still present at the bases. - *Routine Cardiovascular Exam Comments: Controlled rate. - *Routine Extremities Exam Comments: Minimal edema. Assessment and Plan (1) Right lower lobe pneumonia Current visit: Yes Status: Acute Category: Medical Code(s): J18.1 - Lobar pneumonia, unspecified organism (2) Hypokalemia Current visit: Yes Status: Acute Category: Medical Code(s): E87.6 - Hypokalemia (3) Parkinsons disease Current visit: Yes Status: Chronic Category: Medical Code(s): G20 - Parkinson's disease (4) Hypertension Current visit: Yes Status: Chronic Category: Medical Code(s): I10 - Essential (primary) hypertension (5) Tobacco use disorder Current visit: Yes Status: Chronic Category: Medical Code(s): F17.200 - Nicotine dependence, unspecified, uncomplicated (6) Fall Current visit: Yes Status: Chronic Category: Medical Code(s): W19.XXXA - Unspecified fall, initial encounter (7) Sinusitis Current visit: Yes Status: Acute Category: Medical Code(s): J32.9 - Chronic sinusitis, unspecified (8) Renal insufficiency Current visit: Yes Status: Acute Category: Medical Code(s): N28.9 - Disorder of kidney and ureter, unspecified - Assessment and plan all Dx Assessment and Plan for all problems:: His caregiver is quite concerned about the history of the cerebral aneurysm. I do not feel like this is much of a factor at this point. At his age intervention could be difficult as well.
--- NOTE | 2018-07-07 09:18 | Progress Note ---
Internal Medicine - PN: Subj *Date: 07/07/18 *Time: 09:15 Interval history: Patient does answer all questions although speech is garbled. Marcel is at bedside and does understand him. He did eat some first. He denies pain and shortness of breath. The sitter states that she talked with the daughter last night who lives in [place] and makes the decisions. The sitter states she cannot manage him at home because he is unable to assist with getting out of bed. Physical therapy did see him last week and we will reorder consultation again today. Exam Vital signs and Labs for Last 24 Hours: Temp Pulse Resp BP Pulse Ox 98.0 F 71 22 150/88 H 96 07/07/18 08:00 07/07/18 08:00 07/07/18 08:00 07/07/18 08:00 07/07/18 08:00 I & O for Last 24 hours: Intake & Output 07/04/18 07/05/18 07/06/18 07/07/18 11:59 11:59 11:59 11:59 Intake Total 1937 / 1937 2497 / 2497 50 / 50 410 / 410 Output Total 200 / 200 450 / 450 3 / 3 Balance 1737 / 1737 2047 / 2047 47 / 47 410 / 410 Weight 186 lb 183 lb 5 oz 178 lb 5 oz 171 lb 4 oz Radiology Reports for the Last 24 Hours: 07/06/2018 repeat chest x-ray IMPRESSION: Persistent right lower lobe pneumonia with slight increase in size of the reactive right pleural effusion - Constitutional no acute distress Comments: Sitting up in a comfort chair at bedside. Appears comfortable. Breathing is easy and unlabored. - *Routine Respiratory Exam Comments: Diminished breath sounds posteriorly - *Routine Cardiovascular Exam Present: RRR - *Routine Abdominal Exam Present: soft, normoactive bowel sounds. Absent: tenderness - *Routine Extremities Exam Absent: edema, calf tenderness - *Routine Neurological Exam Present: alert Speech is garbled Assessment and Plan (1) Right lower lobe pneumonia Current visit: Yes Status: Acute Category: Medical Code(s): J18.1 - Lobar pneumonia, unspecified organism (2) Hypokalemia Current visit: Yes Status: Acute Category: Medical Code(s): E87.6 - Hypokalemia (3) Parkinsons disease Current visit: Yes Status: Chronic Category: Medical Code(s): G20 - Parkinson's disease (4) Hypertension Current visit: Yes Status: Chronic Category: Medical Code(s): I10 - Essential (primary) hypertension (5) Tobacco use disorder Current visit: Yes Status: Chronic Category: Medical Code(s): F17.200 - Nicotine dependence, unspecified, uncomplicated (6) Fall Current visit: Yes Status: Chronic Category: Medical Code(s): W19.XXXA - Unspecified fall, initial encounter (7) Sinusitis Current visit: Yes Status: Acute Category: Medical Code(s): J32.9 - Chronic sinusitis, unspecified (8) Renal insufficiency Current visit: Yes Status: Acute Category: Medical Code(s): N28.9 - Disorder of kidney and ureter, unspecified (9) Debility Current visit: Yes Status: Acute Category: Medical Code(s): R53.81 - Other malaise - Assessment and plan all Dx Assessment and Plan for all problems:: Physical therapy has been consulted again. Also care management consulted for disposition. Chest x-ray without improvement although clinically patient appears improved. We will continue current respiratory treatment.
--- NOTE | 2018-07-08 08:18 | Progress Note ---
Internal Medicine - PN: Subj *Date: 07/08/18 *Time: 08:14 Interval history: Sitter H. She relates that she will probably have to take him home due to cost issues of rehab. Patient states that he feels better. Unable to understand any additional communication. Exam Vital signs and Labs for Last 24 Hours: Temp Pulse Resp BP Pulse Ox 97.6 F 88 20 149/71 H 90 L 07/08/18 04:00 07/08/18 05:53 07/08/18 04:00 07/08/18 04:00 07/08/18 05:53 I & O for Last 24 hours: Intake & Output 07/05/18 07/06/18 07/07/18 07/08/18 11:59 11:59 11:59 11:59 Intake Total 2497 / 2497 50 / 50 410 / 410 340 / 340 Output Total 450 / 450 3 / 3 Balance 2046 / 2046 47 / 47 410 / 410 340 / 340 Weight 183 lb 5 oz 178 lb 5 oz 171 lb 4 oz Radiology Reports for the Last 24 Hours: 07/07/2018 repeat chest x-ray IMPRESSION: Persistent right lower lobe pneumonia with slight increase in size of the reactive right pleural effusion - Constitutional no acute distress (He is sitting up in a chair at bedside) - *Routine Respiratory Exam Comments: Lungs have bundles and wheezes throughout. - *Routine Cardiovascular Exam Present: RRR - *Routine Abdominal Exam Present: soft, normoactive bowel sounds. Absent: tenderness - *Routine Extremities Exam Absent: edema, calf tenderness - *Routine Neurological Exam Present: alert Assessment and Plan (1) Right lower lobe pneumonia Current visit: Yes Status: Acute Category: Medical Code(s): J18.1 - Lobar pneumonia, unspecified organism (2) Hypokalemia Current visit: Yes Status: Acute Category: Medical Code(s): E87.6 - Hypokalemia (3) Parkinsons disease Current visit: Yes Status: Chronic Category: Medical Code(s): G20 - Parkinson's disease (4) Hypertension Current visit: Yes Status: Chronic Category: Medical Code(s): I10 - Essential (primary) hypertension (5) Tobacco use disorder Current visit: Yes Status: Chronic Category: Medical Code(s): F17.200 - Nicotine dependence, unspecified, uncomplicated (6) Fall Current visit: Yes Status: Chronic Category: Medical Code(s): W19.XXXA - Unspecified fall, initial encounter (7) Sinusitis Current visit: Yes Status: Acute Category: Medical Code(s): J32.9 - Chronic sinusitis, unspecified (8) Renal insufficiency Current visit: Yes Status: Acute Category: Medical Code(s): N28.9 - Disorder of kidney and ureter, unspecified (9) Debility Current visit: Yes Status: Acute Category: Medical Code(s): R53.81 - Other malaise - Assessment and plan all Dx Assessment and Plan for all problems:: Pulmonology to see today. We will continue with current care. Disposition not decided.
[2018-07-08 10:01] LABS: Basophils % 0.2 % (0.1-2.0); Eosinophils # 0.2 K/mm3 (0.0-0.4); Eosinophils % 1.4 % (0.1-12.0); Hematocrit 37.2 % (42.0-52.0); Hemoglobin 11.7 g/dL (14.1-18.0); Lymphocytes # 0.9 K/mm3 (0.7-4.5); Lymphocytes % 7.4 % (10-50); Mean Corpuscular HGB Conc 31.5 g/dL (31.8-35.4); Mean Corpuscular Hemoglobin 31.9 pg (27.0-31.2); Mean Corpuscular Volume 101.4 fl (80-94); Monocytes # 0.6 K/mm3 (0.1-1.0); Monocytes % 4.5 % (1.7-9.3); Neutrophils % 86.6 % (37.0-80.0); Platelet Count 306 K/mm3 (142-424); Red Blood Count 3.67 M/mm3 (4.60-6.20); Red Cell Distribution Width 13.8 % (11.5-17.5); White Blood Count 12.7 K/mm3 (4.8-10.8)
[2018-07-08 10:05] LABS: Anion Gap 15.2 mEq/L (5-15); Calcium 8.9 mg/dL (8.5-10.1); Potassium 4.2 mmoL/L (3.5-5.1)
[2018-07-08 13:18] LABS: Eosinophils % 1 % (0-3); Lymphocytes % 4 % (10-50); Monocytes % 4 % (2-9); Neutrophils % 91 % (42-76); Total Cells Counted 100
[2018-07-08 13:20] LABS: Macrocytosis 1+; Rouleaux 1+
--- NOTE | 2018-07-08 17:53 | Consult Report ---
*Admission Date: 06/29/18 *Chief complaint: Pneumonia (from his caregiver) *History of present illness: Mr. 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 He was admitted on June 30 following another fall at home and, during the evaluation, was discovered to have right lower lobe pneumonia. He suffers from dysarthria and is clearly mildly demented and so my history is mostly from the medical record and his caregiver. She does not recall him coughing more than usual before the event but he does have a daily cough and usually feels up at least a cup with thick brownish sputum. She does not recall him having a fever and he did not complain of chills before this admission. He did seem more short of breath over the last day or 2 before being hospitalized, however. Mr. Matthews has never told her that he had pneumonia before but he did have an infiltrate on a chest x-ray performed a few years ago. That seemed to have cleared on subsequent films. Mr. Matthews was told he had COPD and has been using a nebulizer and an inhaler intermittently. He has not been on oxygen at home. He can answer some questions and told me he had generalized pains but no central chest pain or pleuritic pain on the right he did not feel short of breath lying in bed. At home his appetite is fair and he has no difficulty with activities of daily living although he is quite slow. He does have a tendency to fall and this is been a problem at least for several years. His caregiver first met him at a convenient store when he was going to carry out a gallon of milk to his car. He had difficulty and they struck up a conversation, she helped him at home from time to time and then she moved in 2 years ago. It has been necessary for her to help him around the house but he has generally been independent. [facility] History Medical History: Reports:: Heart Murmur, Hyperlipidemia, Hypertension, Renal Insufficiency Denies:: Cancer, Diabetes Mellitus Type 1, Diabetes Mellitus Type 2, Internal Pacemaker, MRSA Laterality Cases: Bilateral: Other (Lumbar disc surgery; removal of cyst from scrotum) Other Surgeries: No: Pacemaker Amputation: No - *Social History Educational Level: Attended High School (Ms. Matthews is a and his children all live in [place]. He has several stepchildren in this area but there, apparently, has been limited communication with them.) Smoking Status: Current every day smoker Tobacco Type: cigarettes # Packs/Day (cigarettes): 1 Alcohol Intake: current Alcohol Intake Frequency:: holidays/special occasions only Occupational Status: retired Housing: house Household Members: friend(s) - Psychiatric History Expresses thoughts of harming self/others: None Suicide Plan Description: No Plan *Family Hx:: Unable to obtain Review of Systems - *Neurologic Reports unsteadiness, Reports dizziness, Reports frequent falls, Reports headache(s), Reports weakness, Denies seizure-like activity, Denies fainting Meds Home Medications Medication Instructions Recorded Confirmed Type Aspirin [Aspir 81] 81 mg PO DAILY 04/08/18 06/29/18 History Atenolol [Atenolol 25mg Tab] 25 mg PO DAILY 04/08/18 06/29/18 History Baclofen 5 mg PO DAILY 04/08/18 06/29/18 History Multivitamin [Multi-Day Vitamins] 1 each PO DAILY 04/08/18 06/29/18 History Doxepin HCl [Sinequan 10mg capsule] 10 mg PO BID 06/29/18 06/29/18 History hydroCHLOROthiazide [HCTZ 25mg 25 mg PO DAILY 06/29/18 06/29/18 History tab] Albuterol Sulfate [Albuterol HFA 1 - 2 puffs IH Q4-6H PRN 06/30/18 06/30/18 History Inhaler] Cholecalciferol (Vitamin D3) 400 unit PO DAILY 06/30/18 06/30/18 History [Vitamin D3] Sennosides/Docusate Sodium [Stool 1 each PO DAILYP PRN 06/30/18 06/30/18 History Softener-Laxative Tablet] Allergies Allergy/AdvReac Type Severity Reaction Status Date / Time tuberculin,PPD,multi-puncture Allergy Mild Verified 06/29/18 17:31 [TUBERCULIN,PPD,MULTI-PUNCTURE] Exam Vital signs and Labs for Last 24 Hours: Temp Pulse Resp BP Pulse Ox 97.9 F 69 18 129/74 97 07/08/18 16:00 07/08/18 16:00 07/08/18 16:00 07/08/18 16:00 07/08/18 16:00 Laboratory Results - last 24 hr 07/08/18 09:55: Total Creatine Kinase 61 07/08/18 09:55: WBC 12.7 H D, RBC 3.67 L, Hgb 11.7 L, Hct 37.2 L, MCV 101.4 H, MCH 31.9 H, MCHC 31.5 L, RDW 13.8, Plt Count 306 D, MPV 9.0, Neut % (Auto) 86.6 H, Lymph % (Auto) 7.4 L, [place] % (Auto) 4.5, Eos % (Auto) 1.4, Baso % (Auto) 0.2, Neut # (Auto) 11.0 H, Lymph # (Auto) 0.9, [place] # (Auto) 0.6, Eos # (Auto) 0.2, Baso # (Auto) 0.0, Total Counted 100, Neutrophils % (Manual) 91 H, Lymphocytes % (Manual) 4 L, Monocytes % (Manual) 4, Eosinophils % (Manual) 1, Platelet E stimate Normal, Macrocytosis 1+, Rouleaux 1+ 07/08/18 09:55: Sodium 141, Potassium 4.2, Chloride 104, Carbon Dioxide 26, Anion Gap 15.2 H, BUN 21 H D, Creatinine 1.30, Estimated Creat Clear 48, Estimated GFR 53 L, Est GFR ( Amer) 64, Glucose 138 H, Calcium 8.9 I & O for Last 24 hours: Intake & Output 07/05/18 07/06/18 07/07/18 07/08/18 23:59 23:59 23:59 23:59 Intake Total 2187 / 2187 240 / 240 410 / 410 460 / 460 Output Total 3 / 3 Balance 2184 / 2184 240 / 240 410 / 410 460 / 460 Weight 83.149 kg 80.881 kg 77.678 kg Narrative: Mr. Matthews is a chronically ill, gaunt, elderly man lying in a recliner at a 60 degree angle. His mouth was quite dry but he does seem to suffer from dysarthr ia. He did not know the year or the president and rambled when he tried to answer questions. It was very difficult to understand him. HEENT: Sclerae clear; conjunctivae slightly pale; oropharynx is very dry. Neck: No adenopathy Chest: Symmetric suction; hyperresonance by percussion bilaterally; inspiratory pops and squeaks and wheezes bilaterally, especially at the right base. Prolonged expiration. Heart: Regular rhythm; loud aortic component of the second heart sound with an S4 gallop. Abdomen: Scaphoid; bowel sounds diminished; soft, nontender, no masses. Extremities: No clubbing. He did not have any edema. Neurological: He is not oriented and I am not sure he can walk now. He had no obvious abnormal reflexes and had no parkinsonian tremor. I could not detect grilling. I did not get him up to try to walk him. Internal Medicine - CN: Reslt - Labs CBC & Chem 7: 07/08/18 09:55 07/08/18 09:55 Labs: Short CBC 07/08/18 Range/Units 09:55 WBC 12.7 H D (4.8-10.8) K/mm3 Hgb 11.7 L (14.1-18.0) g/dL Hct 37.2 L (42.0-52.0) % Plt Count 306 D (142-424) K/mm3 BMP 07/08/18 09:55 Sodium 141 Potassium 4.2 Chloride 104 Carbon Dioxide 26 BUN 21 H D Creatinine 1.30 Glucose 138 H Calcium 8.9 Cardiac Enzymes 07/08/18 Range/Units 09:55 Total Creatine Kinase 61 (39-308) U/L - Impressions The chest x-ray does show an apparent right lower lobe infiltrate and I am concerned there may be volume loss on the right as well. There might also be a pleural effusion but I cannot be sure. Assessment and Plan (1) Right lower lobe pneumonia Current visit: Yes Status: Acute Category: Medical Code(s): J18.1 - Lobar pneumonia, unspecified organism (2) Hypokalemia Current visit: Yes Status: Acute Category: Medical Code(s): E87.6 - Hypokalemia (3) Parkinsons disease Current visit: Yes Status: Chronic Category: Medical Code(s): G20 - Parkinson's disease (4) Hypertension Current visit: Yes Status: Chronic Category: Medical Code(s): I10 - Ess ential (primary) hypertension (5) Tobacco use disorder Current visit: Yes Status: Chronic Category: Medical Code(s): F17.200 - Nicotine dependence, unspecified, uncomplicated (6) Fall Current visit: Yes Status: Chronic Category: Medical Code(s): W19.XXXA - Unspecified fall, initial encounter (7) Sinusitis Current visit: Yes Status: Acute Category: Medical Code(s): J32.9 - Chronic sinusitis, unspecified (8) Renal insufficiency Current visit: Yes Status: Acute Category: Medical Code(s): N28.9 - Disorder of kidney and ureter, unspecified (9) Debility Current visit: Yes Status: Acute Category: Medical Code(s): R53.81 - Other malaise - Assessment and plan all Dx Assessment and Plan for all problems:: Mr. Matthews has a long history of cigarette smoking and seems to have chronic obstructive pulmonary disease. He is certainly neurologically impaired, possibly due to multiple small strokes and he may have vascular Parkinson's although I cannot detect classic findings for this. He is on medications for Parkinson's disease, however. He is quite frail and according to his caregiver, is nowhere near his baseline level of functioning. I think it would be difficult for him to go home without a lot of assistance and recommend a fci. As you know, he is a and [facility]. I recommend transferring him to the [facility] and obtaining a pulmonary consultation there. With his long history of cigarette smoking and possible volume loss on the right, a CT scan of the chest seems warranted. If he is going to the fci soon at the [facility], that could be done there. Where ever it is performed, if an endobronchial obstruction or volume loss is detected, a bronchoscopy could be undertaken. He has a will at home and names 2 of his sons as his executor is, I understand. I do not know whether he has a DURABLE POWER OF INSTRUMENT STERILIZER for healthcare. In his present state of mind, I do not think he can make decisions for himself without some assistance. His caregiver told me that he is "allergic to the TB skin test." I recommend obtaining an interferon gamma release assay such as QuantiFERON gold. [facility] or not [facility] was given [facility] for tuberculosis infection. The current chest radiograph does not suggest active TB. I would be happy to follow-up at any time. Thank you for the opportunity to participate in Mr. Matthews's care
--- NOTE | 2018-07-09 08:10 | Progress Note ---
Internal Medicine - PN: Subj *Date: 07/09/18 *Time: 08:08 Interval history: Patient is feeling about the same today. He had a bad night. He ran a fever according to his caregiver and was aching all over. Still with a cough and SOA. Unable to cough anything up. Got choked on oatmeal this am. Exam Vital signs and Labs for Last 24 Hours: Temp Pulse Resp BP Pulse Ox 97.9 F 73 20 146/69 H 92 L 07/09/18 04:00 07/09/18 05:48 07/09/18 04:00 07/09/18 04:00 07/09/18 04:00 Laboratory Results - last 24 hr 07/08/18 09:55: Total Creatine Kinase 61 07/08/18 09:55: WBC 12.7 H D, RBC 3.67 L, Hgb 11.7 L, Hct 37.2 L, MCV 101.4 H, MCH 31.9 H, MCHC 31.5 L, RDW 13.8, Plt Count 306 D, MPV 9.0, Neut % (Auto) 86.6 H, Lymph % (Auto) 7.4 L, [place] % (Auto) 4.5, Eos % (Auto) 1.4, Baso % (Auto) 0.2, Neut # (Auto) 11.0 H, Lymph # (Auto) 0.9, [place] # (Auto) 0.6, Eos # (Auto) 0.2, Baso # (Auto) 0.0, Total Counted 100, Neutrophils % (Manual) 91 H, Lymphocytes % (Manual) 4 L, Monocytes % (Manual) 4, Eosinophils % (Manual) 1, Platelet Estimate Normal, Macrocytosis 1+, Rouleaux 1+ 07/08/18 09:55: Sodium 141, Potassium 4.2, Chloride 104, Carbon Dioxide 26, Anion Gap 15.2 H, BUN 21 H D, Creatinine 1.30, Estimated Creat Clear 48, Estimated GFR 53 L, Est GFR ( Amer) 64, Glucose 138 H, Calcium 8.9 I & O for Last 24 hours: Intake & Output 07/06/18 07/07/18 07/08/18 07/09/18 11:59 11:59 11:59 11:59 Intake Total 50 / 50 410 / 410 460 / 460 480 / 480 Output Total 3 / 3 200 / 200 Balance 47 / 47 410 / 410 460 / 460 280 / 280 Weight 178 lb 5 oz 171 lb 4 oz 170 lb 3 oz - Constitutional no acute distress - *Routine Respiratory Exam Present: rhonchi (right), wheezes - *Routine Cardiovascular Exam Present: RRR - *Routine Abdominal Exam Present: soft, normoactive bowel sounds. Absent: tenderness - *Routine Extremities Exam Absent: cyanosis, clubbing, edema Assessment and Plan (1) Right lower lobe pneumonia Current visit: Yes Status: Acute Category: Medical Code(s): J18.1 - Lobar pneumonia, unspecified organism (2) Hypokalemia Current visit: Yes Status: Acute Category: Medical Code(s): E87.6 - H ypokalemia (3) Parkinsons disease Current visit: Yes Status: Chronic Category: Medical Code(s): G20 - Parkinson's disease (4) Hypertension Current visit: Yes Status: Chronic Category: Medical Code(s): I10 - Essential (primary) hypertension (5) Tobacco use disorder Current visit: Yes Status: Chronic Category: Medical Code(s): F17.200 - Nicotine dependence, unspecified, uncomplicated (6) Fall Current visit: Yes Status: Chronic Category: Medical Code(s): W19.XXXA - Unspecified fall, initial encounter (7) Sinusitis Current visit: Yes Status: Acute Category: Medical Code(s): J32.9 - Chronic sinusitis, unspecified (8) Renal insufficiency Current visit: Yes Status: Acute Category: Medical Code(s): N28.9 - Disorder of kidney and ureter, unspecified (9) Debility Current visit: Yes Status: Acute Category: Medical Code(s): R53.81 - Other malaise - Assessment and plan all Dx Assessment and Plan for all problems:: Dr. Munoz's note reviewed. He recommends a [facility] shelter. Will discuss with care management.
--- NOTE | 2018-07-10 08:38 | Progress Note ---
Internal Medicine - PN: Subj *Date: 07/10/18 *Time: 08:35 Interval history: Patient's caregiver states the patient had a rough night again. He had to have 2 breathing treatments due to shortness of breath. He also had to have some suctioning of the throat due to secretions. She states he does much better when he sitting up and moving around. He has eaten all of his breakfast this morning with no difficulty. She states he complained of pain all night and she does not feel that the Tylenol is working. She request something stronger for his back and leg pain. Exam Vital signs and Labs for Last 24 Hours: Temp Pulse Resp BP Pulse Ox 98.7 F 85 22 139/64 94 L 07/10/18 08:00 07/10/18 08:00 07/10/18 08:00 07/10/18 08:00 07/10/18 08:00 I & O for Last 24 hours: Intake & Output 07/07/18 07/08/18 07/09/18 07/10/18 11:59 11:59 11:59 11:59 Intake Total 410 / 410 460 / 460 1731 / 1731 250 / 250 Output Total 200 / 200 Balance 410 / 410 460 / 460 1531 / 1531 250 / 250 Weight 171 lb 4 oz 170 lb 3 oz 174 lb 3 oz Radiology Reports for the Last 24 Hours: Chest CT 1. Bilateral lower lobe pneumonia right more extensive left with small bilateral effusions. 2. Centrilobular emphysema. 3. Mild fusiform dilatation of the ascending aorta 4.4 cm. Coronary artery calcifications noted with left ventricular hypertrophy 4. 9 mm groundglass opacity right lower lobe 5 mm nodular density right upper lobe. Consider 6 month follow-up to confirm stability or resolution - Constitutional no acute distress - *Routine Respiratory Exam Present: rhonchi, wheezes (bilaterally) - *Routine Cardiovascular Exam Present: RRR - *Routine Abdominal Exam Present: soft, normoactive bowel sounds. Absent: tenderness - *Routine Extremities Exam Absent: cyanosis, clubbing, edema Assessment and Plan (1) Bilateral pneumonia Current visit: Yes Status: Acute Category: Medical Code(s): J18.9 - Pneumonia, unspecified organism (2) Hypokalemia Current visit: Yes Status: Acute Category: Medical Code(s): E87.6 - Hypokalemia (3) Parkinsons disease Current visit: Yes Status: Chronic Category: Medical Code(s): G20 - Parkinson's disease (4) Hypertension Current visit: Yes Status: Chronic Category: Medical Code(s): I10 - Essential (primary) hypertension (5) Tobacco use disorder Current visit: Yes Status: Chronic Category: Medical Code(s): F17.200 - Nicotine dependence, unspecified, uncomplicated (6) Fall Current visit: Yes Status: Chronic Category: Medical Code(s): W19.XXXA - Unspecified fall, initial encounter (7) Sinusitis Current visit: Yes Status: Acute Category: Medical Code(s): J32.9 - Chronic sinusitis, unspecified (8) Renal insufficiency Current visit: Yes Status: Acute Category: Medical Code(s): N28.9 - Disorder of kidney and ureter, unspecified (9) Debility Current visit: Yes Status: Acute Category: Medical Code(s): R53.81 - Other malaise (10) Aortic dilatation Current visit: Yes Status: Acute Category: Medical Code(s): I77.819 - Aortic ectasia, unspecified site - Assessment and plan all Dx Assessment and Plan for all problems:: CT showed bilateral pneumonia, a dilated aorta, and a 9 mm groundglass opacity in the right lower lobe and a 5 mm nodular density in the right upper lobe. Will discuss further care with Dr. Easley.
--- NOTE | 2018-07-10 16:38 | Discharge Summary ---
General - General Admission date:: 06/29/18 Discharge date: 07/10/18 HPI HPI: Patient is an 82-year-old male who receives the majority of his care at [facility] and is also followed by Dr. Easley who was admitted through [facility] emergency room due to a fall and persistent cough. He does have a history of hypertension, chronic back pain, tobacco addiction, peptic ulcer disease, Parkinson's disease, cerebral aneurysm, and frequent falls. Patient describes a cough for the past 3-4 days associated with a fever and some shortness of breath. He states that he got up from his chair yesterday p.m., lost his balance and fell to the floor. He states this happens frequently. He denies any injuries from the fall. He does deny chest pain as well and feels that he has been eating as usual. With evaluation in the emergency room he was found to have a pneumonia. He was given an IV fluid bolus, started on Rocephin, and then admitted for further evaluation and treatment. This a.m. patient does not feel any better. He continues to cough. Hospital Course Hospital Course: Patient was started on IV Rocephin and Zithromax. IV fluids with 40 mEq of potassium were started at 75 an hour. He was also started on p.o. potassium and duoNeb treatments. None of his imaging revealed a fracture. He did have a swallowing study and speech therapy recommended thickened liquids. His lungs b bella to sound worse. A repeat CXR and chest physiotherapy were ordered. The CXR showed no change in the pneumonia. He did improve and was able to eat and sit up in a chair. His zithromax was discontinued and his BP medication was changed from HCTZ to maxzide. Another repeat CXR still showed no improvement in his pneumonia. Pulmonology was consulted. Dr. Munoz saw the patient and felt he needed a chest CT and possibly a bronchoscopy. The CT showed a bilateral pneumonia and densities in the right lung. Physical Therapy was consulted and felt he would need LTC placement. Dr. Easley consulted again with Dr. Munoz who felt the patient would need transfer for a bronchoscopy. There were no beds at , but a bed was found for the patient at the [facility] in [place]. He will be transferred. Objective Vital signs: Temp Pulse Resp BP Pulse Ox 99 F 75 22 108/64 L 91 L 07/10/18 11:59 07/10/18 11:59 07/10/18 08:00 07/10/18 11:59 07/10/18 11:59 Narrative: - Constitutional no acute distress Comments: Conversant - *Routine HEENT Exam Head: Present: normocephalic, atraumatic Eye: Present: PERRL ENT: Present: mucous membranes dry, oropharynx clear, nares patent - *Routine Neck Exam Present: supple, full ROM. Absent: carotid bruit, lymphadenopathy, thyromegaly - *Routine Respiratory Exam Comments: Bilateral rhonchi and wheezing throughout - *Routine Cardiovascular Exam Present: RRR - *Routine Abdominal Exam Present: soft, normoactive bowel sounds. Absent: tenderness, distended - *Routine Extremities Exam Present: full ROM. Absent: edema, calf tenderness - *Routine Neurological Exam Present: alert, oriented X3 Cogwheeling noted; mask face DS: Diagnosis - Discharge Diagnosis (1) Bilateral pneumonia Status: Acute (2) Hypokalemia Status: Acute (3) Parkinsons disease Status: Chronic (4) Hypertension Status: Chronic (5) Tobacco use disorder Status: Chronic (6) Fall Status: Chronic (7) Sinusitis Status: Acute (8) Renal insufficiency Status: Acute (9) Debility Status: Acute (10) Aortic dilatation Status: Acute Discharge Plan - Patient Discharge Instructions ACTIVITY: Continue current activity DIET: continue same diet Patient Instructions: Pneumonia-Adult Forms: Transfer Record - Follow up Plan Disposition: Xfer Short-Term Hosp Home Medications: Home Medications Medication Instructions Recorded Confirmed Type Aspirin [Aspir 81] 81 mg PO DAILY 04/08/18 06/29/18 History Atenolol [Atenolol 25mg Tab] 25 mg PO DAILY 04/08/18 06/29/18 History Baclofen 5 mg PO DAILY 04/08/18 06/29/18 History Multivitamin [Multi-Day Vitamins] 1 each PO DAILY 04/08/18 06/29/18 History hydroCHLOROthiazide [HCTZ 25mg 25 mg PO DAILY 06/29/18 06/29/18 History tab] Albuterol Sulfate [Albuterol HFA 1 - 2 puffs IH Q4-6H PRN 06/30/18 06/30/18 History Inhaler] Cholecalciferol (Vitamin D3) 400 unit PO DAILY 06/30/18 06/30/18 History [Vitamin D3] Sennosides/Docusate Sodium [Stool 1 each PO DAILYP PRN 06/30/18 06/30/18 History Softener-Laxative Tablet] Prescriptions/Medication Reconciliation: New Triamterene/Hydrochlorothiazid [Maxzide-25 tablet] 1 each PO DAILY tablet Sodium Chloride For Inhalation [Sodium Chloride 3% 15mL Neb] 3 ml IH ONCE PRN vial.neb PRN Reason: INDUCE SPUTUM COLLECTION risperiDONE [Risperdal 0.5mg tablet] 0.5 mg PO BID tablet Pramipexole Di-HCl [Mirapex 0.125mg tablet] 0.125 mg PO TID tablet Potassium Chloride [Klor-con 20 mEq tablet] 20 meq PO DAILY tablet Irbesartan [Avapro 75mg tablet] 75 mg PO DAILY tablet Ipratropium/Albuterol Sulfate [Duoneb 3mL neb] 3 ml IH QIDRT ampul.neb Ipratropium/Albuterol Sulfate [Duoneb 3mL neb] 3 ml IH Q2HP PRN am pul.neb PRN Reason: SOA Ergocalciferol (Vitamin D2) [Vitamin D] 400 unit PO DAILY Carbidopa/Levodopa [Carbidopa/Levodopa 25/100mg Tablet] 1 each PO TID tablet Ceftriaxone Sodium [Rocephin 1gm vial] 1 gm IV Q24H vial Acetaminophen [Acetaminophen 325mg tab] 650 mg PO Q4HP PRN tablet PRN Reason: As Needed For Fever Or Pain Continue Multivitamin [Multi-Day Vitamins] 1 each PO DAILY Aspirin [Aspir 81] 81 mg PO DAILY hydroCHLOROthiazide [HCTZ 25mg tab] 25 mg PO DAILY Atenolol [Atenolol 25mg Tab] 25 mg PO DAILY Baclofen 5 mg PO DAILY Albuterol Sulfate [Albuterol HFA Inhaler] 1 - 2 puffs IH Q4-6H PRN PRN Reason: Shortness Of Breath Or Wheezing Cholecalciferol (Vitamin D3) [Vitamin D3] 400 unit PO DAILY Sennosides/Docusate Sodium [Stool Softener-Laxative Tablet] 1 each PO DAILYP PRN PRN Reason: Constipation Discontinued Doxepin HCl [Sinequan 10mg capsule] 10 mg PO BID
== END 2018-07-10 13:35 ==
LOC: ICU 17:21 → ER 17:21 → 2ND 20:20 → OBSVTOIN 20:28 → 2ND 20:31
PROVIDERS: ADMIT Family Medicine; ATTEND Family Medicine
CPT/HCPCS: 36415; 70371; 70450; 70486; 71010; 71045; 71260; 72125; 72170; 80048; 80053; 82550; 82553; 83605; 84484; 85007; 85025; 87040; 92507; 92610; 92611; 94640; 94761; 96365; 96367; 97110; 97162; 97163; 97530; 97532; 99285; J0456; Q9967